=== PATIENT | female | born 1990 | race African-American/Black ===

== ENCOUNTER 2017-12-22 23:40 | Emergency (ER) | payer OTHER ==
[2017-12-23] MEDS: PERCOCET 5MG/325MG TAB PO (04:10)
[2017-12-23] MEDS: MECLIZINE 25 MG TABLET PO (04:10)
[2017-12-23] MEDS: AUGMENTIN 875 MG TAB PO (04:10)
== END 2017-12-23 04:18 | disposition home or self-care (01) ==
LOC: M ED 23:40
DX: H66.92 Otitis media, unspecified, left ear (principal); H83.09 Labyrinthitis, unspecified ear; Z91.012 Allergy to eggs; Z79.899 Other long term (current) drug therapy
CPT/HCPCS: 99283

== ENCOUNTER → 2018-03-31 | Outpatient (CLI) | payer SELFPAY | LOC: M WUC 12:42 | DX: Z11.1 Encounter for screening for respiratory tuberculosis (principal) | CPT/HCPCS: 71046 ==

== ENCOUNTER → 2019-05-12 | Outpatient (CLI) | payer OTHER ==
[~2019-05-12] MED LIST: AUGM500T34 PO; COLA100C5 PO; IBUP-1114 PO; MAPA500T2 PO; MECL-86 PO
--- NOTE | 2019-05-12 18:59 | REP ---
PA and lateral chest: Comparison is 03/31/2018. The lung roper are clear. The cardiac size is normal. The rosetta, mediastinum, and skeletal structures are unremarkable. Impression: Negative PA and lateral chest. There is no interval change. Electronically Signed by Marciano Estes MD 05/12/2019 06:51 P
== END ==
LOC: M WUC 12:19
PROVIDERS: ATTEND Family Medicine Adult Medicine
DX: R76.11 Nonspecific reaction to tuberculin skin test without active tuberculosis (principal)